=== PATIENT | male | born 1955 | race Caucasian/White ===

== ENCOUNTER 2021-04-27 16:40 | Inpatient (IN) | payer MEDICARE, OTHER ==
[2021-04-27 18:01] VITALS: BMI 25.4
[2021-04-27] MEDS ORDERED: Scopolamine 1.5 mg/72 hour Patch TOP PRN (19:44)
[2021-04-27] MEDS ORDERED: Ondansetron PF 4 MG/2 ML Vial IVP PRN (19:45)
[2021-04-27] MEDS: Morphine 2 MG/ML VIAL SLOW IVP PRN ×2 (20:30→22:00)
[2021-04-27] MEDS: Lorazepam 2 MG/ML VIAL SLOW IVP PRN (20:30)
[2021-04-28] MEDS: Morphine 2 MG/ML VIAL SLOW IVP PRN ×4 (07:28→19:07)
[2021-04-28] MEDS: Lorazepam 2 MG/ML VIAL SLOW IVP PRN ×2 (11:59→15:15)
[2021-04-29] MEDS ORDERED: Morphine 4 MG/ML VIAL SLOW IVP PRN (09:43)
[2021-04-29] MEDS ORDERED: Lorazepam 2 MG/ML VIAL SLOW IVP PRN (09:43)
[2021-04-29 11:31] VITALS: BP 100/59; TEMP 98
[2021-04-29] MEDS: Morphine 4 MG/ML VIAL SLOW IVP SCH ×3 (12:54→21:26)
[2021-04-29] MEDS: Lorazepam 2 MG/ML VIAL SLOW IVP SCH ×3 (14:30→21:26)
[2021-04-30] MEDS: Lorazepam 2 MG/ML VIAL SLOW IVP SCH (01:26)
[2021-04-30] MEDS: Morphine 4 MG/ML VIAL SLOW IVP SCH (01:26)
== END 2021-04-30 03:27 | disposition expired | DRG 871 ==
LOC: CSHHOSPOP 16:40 → CSHHOSPICE 16:41 → EDSTATUS 19:15 → CSHICU 19:39 → CSHTELE 04-28 17:26
PROVIDERS: ADMIT Family Medicine; ATTEND Family Medicine
DX: A41.9 Sepsis, unspecified organism (principal); R65.21 Severe sepsis with septic shock; G93.41 Metabolic encephalopathy; N17.9 Acute kidney failure, unspecified; C79.31 Secondary malignant neoplasm of brain; G40.802 Other epilepsy, not intractable, without status epilepticus; E87.2 Acidosis; C43.9 Malignant melanoma of skin, unspecified; Z51.5 Encounter for palliative care; Z87.891 Personal history of nicotine dependence; E86.0 Dehydration; Z66 Do not resuscitate
CPT/HCPCS: J2060; J2270; J2405